=== PATIENT | female | born 1975 | race Two or more races ===

== ENCOUNTER 2019-03-28 11:29 | Emergency (ER) | payer MEDICAID ==
[~2019-03-28] VITALS: Ht 154.9 cm; Wt 81.6 kg
[2019-03-28 11:47] VITALS: BP 107/64
[2019-03-28] MEDS ORDERED: KETOROLAC TROMETH 60MG/2ML VIAL IM ONE (14:30)
[2019-03-28] MEDS ORDERED: METHOCARBAMOL 500 MG TAB PO ONE (14:30)
== END 2019-03-28 15:19 | disposition home or self-care (01) ==
LOC: ER 11:29
DX: M54.2 Cervicalgia (principal); M25.511 Pain in right shoulder; I10 Essential (primary) hypertension; F12.10 Cannabis abuse, uncomplicated
CPT/HCPCS: 96372; 99283; J1885